=== PATIENT | male | born 1975 | race Caucasian/White ===

== ENCOUNTER 2025-02-25 10:06 | Emergency (ER) | payer OTHER, SELFPAY ==
[2025-02-25] MEDS: OMNIPAQUE 50 ML PO (12:13)
--- NOTE | 2025-02-25 12:14 | ED.GENMED ---
History of Present Illness
General
Chief Complaint: Abdominal Pain
Time Seen by Provider: 02/25/25 11:26
History of Present Illness
History of Present Illness:
49-year-old male without significant past medical history presenting for abdominal pain. Patient reports for the past 4 days he has had lower abdominal pain as well as some diarrhea. Does also report some chills. Pain has been worsening since
onset which prompted him to come to the hospital. Denies any vomiting. Denies chest pain or difficulty breathing. Does report history of hernia repair in the past. Denies dysuria. Denies any back pain. Denies additional medical complaints
Phy Exam
Physical Exam
Physical Exam:
General: Well-appearing, no clinical signs of dehydration, nontoxic and in no acute distress
HEENT: protecting airway
Neck: appears supple
CV: Normal heart rate, regular rhythms
Resp: No accessory muscle use, no increased work of breathing, lungs clear to auscultation bilaterally
Abd: Soft and non-distended, focal tenderness in the suprapubic and right lower quadrant abdomen without rebound or guarding
Extremities: No deformities, no swelling, no erythema
Neuro: alert, no focal neurologic deficit
: deferred
Rectal: deferred
Psych: Normal affect
Skin: Intact
Course
Orders/Labs/Results
Orders:
Orders
02/25/25 11:52
Urinalysis Reflex To Culture Urgent
Date Specimen was Collected: 02/25/25
Time Specimen was Collected: 14:41
Iohexol [Omnipaque] See Protocol PO NOW STA
Ketorolac [Toradol] 15 mg IV NOW STA
02/25/25 11:53
CT Abd/pel W Iv And Oral Contr Urgent
Comment:
Reason For Exam: RLQ and suprapubic pain, appe vs divertic
02/25/25 12:12
Basic Metabolic Panel Urgent
Complete Blood Count/With Diff Urgent
Lipase Urgent
02/25/25 15:12
Amoxicillin 875 mg/Clav 125 mg [Augmentin 875 mg/125 mg] 1 tablet PO NOW STA
Abnormal Lab Results
02/25/25
12:12
WBC 13.2 H 10^3/uL
(4.8-10.8)
RBC 4.50 L 10^6/uL
(4.70-6.10)
MCH 31.8 H pg
(27.0-31.0)
Abs Immat Gran (auto) 0.1 H 10^3/uL
(0-0.05)
Absolute Neuts (auto) 10.4 H 10^3/uL
(1.4-6.5)
Absolute Monos (auto) 1.1 H 10^3/uL
(0.1-0.6)
Neutrophils % 78.6 H %
(42.2-75.2)
Lymphocytes % 11.5 L %
(20.5-51.1)
Glucose 111 H mg/dl
(70-99)
02/25/25 12:12
02/25/25 12:12
Vital Signs
Initial and Last Documented VS:
Initial Vital Signs
Temp Pulse Resp Pulse Ox
98.7 F 74 17 99
02/25/25 10:08 02/25/25 10:08 02/25/25 10:08 02/25/25 10:08
Last Documented Vital Signs
Temp Pulse Resp BP Pulse Ox
98.7 F 66 19 131/66 99
02/25/25 10:08 02/25/25 14:00 02/25/25 14:00 02/25/25 14:00 02/25/25 13:00
MDM/Problems Addressed
MDM/Problems Addressed:
49-year-old male presenting for 4 days of lower abdominal pain. Vital signs on arrival are normal.
On exam patient is resting comfortably, nontoxic. Patient does have reproducible tenderness to the suprapubic and right lower quadrant abdomen. Concern for diverticulitis versus cystitis versus appendicitis. Plan for laboratory analysis and CT
abdominal imaging. Toradol administered for pain
15:10 -CT shows concern for acute diverticulitis without complicating features. Feel candidate for outpatient oral antibiotics. Will start on Augmentin. Otherwise feel stable for discharge. Strict return precautions communicated and patient
verbalized understanding
*Critical Care Note
Total Time (30-74mins, 75-104mins- exclusive of procedures): Not Applicable
ED Attending Note
-
Portions of this chart may have been created with voice recognition software.� Occasional wrong word or��sound alike� substitutions may have occurred due to the inherent limitations of voice recognition software.
Discharge Plan
Departure
Referrals:
Harman Ballard DO [Family Provider] -
Interventions
Interventions:
*Risk Screen - Suicide Last Done: 02/25/25 10:09
*General Assessment Last Done: 02/25/25 10:09
*Neglect/Abuse Screening Last Done: 02/25/25 10:09
*ED COVID-19 Vaccine History Last Done: 02/25/25 10:09
LQ-Ihzfgu-Ckhxkaunkn Assessment Last Done: 02/25/25 11:53
Discharge Date and Time
Print Language: CENTRAL AFRICAN
[2025-02-25] MEDS: TORADOL 15 MG IV (12:17)
[2025-02-25 12:29] LABS: % Basophils 0.3 % (0-2); % Eosinophils 0.8 % (0-6); % Immature Granulocytes 0.5 % (0-0.5); % Lymphocytes 11.5 % (20.5-51.1); % Monocytes 8.3 % (1.7-9.3); % Neutrophils 78.6 % (42.2-75.2); Absolute Eosinophils 0.1 10^3/uL (0-0.7); Absolute Immature Granulocytes 0.1 10^3/uL (0-0.05); Absolute Lymphocytes 1.5 10^3/uL (1.2-3.4); Absolute Monocytes 1.1 10^3/uL (0.1-0.6); Absolute Neutrophils 10.4 10^3/uL (1.4-6.5); Hematocrit 42.1 % (39.0-52.0); Hemoglobin 14.3 g/dL (13.0-18.0); Mean Corpuscular Hgb 31.8 pg (27.0-31.0); Mean Corpuscular Volume 93.6 fL (80.0-94.0); Mean Platelet Volume 9.6 fL (7.4-10.4); Nucleated Red Blood Cells % 0 % (-); Platelet Count 191 10^3/uL (130-400); Red Cell Dist. Width 12.9 % (11.5-14.5); White Blood Cell Count 13.2 10^3/uL (4.8-10.8)
[2025-02-25 12:52] LABS: Blood Urea Nitrogen 16 mg/dl (9-20); Calcium 9.2 mg/dl (8.4-10.2); Carbon Dioxide 28 mmol/L (22-30); Chloride 101 mmol/L (98-107); Glucose 111 mg/dl (70-99); Lipase 86 U/L (23-300); Sodium 137 mmol/L (135-145); eGFR > 60.00
[2025-02-25 13:00] VITALS: BP 138/63
[2025-02-25 14:00] VITALS: BP 131/66
[2025-02-25] MEDS: AUGMENTIN 875 MG/125 MG 1 TABLET PO (15:31)
[2025-02-25 16:26] LABS: Urine Albumin Negative (Neg - Trace); Urine Bilirubin Negative (Negative); Urine Character Clear (Clear); Urine Color Yellow; Urine Glucose Negative (Negative); Urine Ketone 1+ (Negative); Urine Leukocyte Negative (Negative); Urine Nitrite Negative (Negative); Urine Occult Blood Negative (Negative); Urine Urobilinogen Negative (Neg - 1+)
== END 2025-02-25 15:49 | disposition home or self-care (01) ==
LOC: EMR 10:06
PROVIDERS: EMERGENCY PHYSICIAN Student in an Organized Health Care Education/Training Program; FAMILY PHYSICIAN Family Medicine
DX: R10.30 Lower abdominal pain, unspecified (principal); R19.7 Diarrhea, unspecified; R68.83 Chills (without fever)
CPT/HCPCS: 99284; 96374; 74177; 80048; 81003; 83690; 85025; Q9967